=== PATIENT | male | born 1930 | race Caucasian/White ===

== ENCOUNTER → 2016-12-25 | Outpatient (CLI) | payer MEDICARE ==
--- NOTE | 2016-12-25 16:28 | US ---
EXAM DESCRIPTION: Testicular CLINICAL HISTORY: 86 years Male, INGUINAL PAIN COMPARISON: None. FINDINGS: The right testicle is 2.9 x 2.0 x 1.5 cm in size and is homogeneous with a tiny amount of hydrocele fluid. No evidence of testicular mass with normal flow. Right epididymis is 1.0 x 1.4 x 0.5 cm. A tiny amount of hydrocele fluid is present. In the right inguinal region is a small echogenic focus in the area of the patient's discomfort that may represent a small fat-containing inguinal hernia. This is approximately 1.7 cm in maximal length. The left testicle is 2.4 x 2.3 x 1.4 cm. Normal flow is noted. Within the testicle are two small cystic structures one septated and one simple in appearance. A moderate left hydrocele is present. The small septated cyst is 6 mm in diameter and the simple cyst is 4 mm in diameter. The left epididymis is 1.0 x 2.7 x 0.8 cm in length and diameter. Small cyst estimated at 5 x 7 mm involving the epididymal head is evident. IMPRESSION: 1. Essentially normal appearance of the testes with two small benign-appearing cyst involving the left testicle with modest left hydrocele. 2. Small 5 x 7 mm probable epididymal head cyst on the left as well. Echogenic material within the right inguinal ring is suspicious for a fat-containing small hernias approximately 1.6 cm in size Electronically signed by: Elvin Brewster MD 12/25/2016 4:27 PM CDT
== END | disposition home or self-care (01) ==
LOC: US 14:24
PROVIDERS: ATTEND Nurse Practitioner Family
DX: R10.2 Pelvic and perineal pain (principal)